=== PATIENT | female | born 1980 | race Caucasian/White ===

== ENCOUNTER 2020-01-11 18:07 | Emergency (ER) | payer MEDICAID, OTHER ==
[2020-01-11] MEDS ORDERED: IBUPROFEN 800 MG TABLET PO ONE (18:14)
--- NOTE | 2020-01-11 18:17 | ER Document Report ---
ED Medical Screen (RME) - General Chief Complaint: Pelvic Pain Stated Complaint: ABDOMINAL PAIN/LOWER BACK PAIN Time Seen by Provider: 01/11/20 18:10 Primary Care Provider: AGUEDA LEZAMA [Primary Care Provider] - Follow up as needed Mode of Arrival: Ambulatory Information source: Patient Notes: 39-year-old female presents emergency department with complaints of lower a bdominal pain, vaginal pain, low back pain. Reports symptoms started 2 days ago when she started her menses. She reports she usually has menstrual cramps with this is extreme. She reports for the last 6 months of 2018 she did not have menses. She started bleeding again in October. She reports the bleeding is very heavy. Each month her menses is heavy. She reports at times she has to wear a tampon and a pad. She reports today she is having so much pain in her vaginal area she is unable to insert a tampon. She denies fever vomiting diarrhea. She took Tylenol last night without relief of symptoms. I have greeted and performed a rapid initial assessment of this patient. A comprehensive ED assessment and evaluation of the patient, analysis of test results and completion of the medical decision making process will be conducted by additional ED providers. - Related Data Allergies/Adverse Reactions: morphine Allergy (Verified 01/11/20 18:14) Past Medical History - Social History Chew tobacco use (# tins/day): No Frequency of alcohol use: None Drug Abuse: None Physical Exam - Vital signs Vitals: Temp Pulse Resp BP Pulse Ox 98.0 F 84 18 156/99 H 98 01/11/20 18:11 01/11/20 18:11 01/11/20 18:11 01/11/20 18:11 01/11/20 18:11 Course - Vital Signs Vital signs: Temp Pulse Resp BP Pulse Ox 98.0 F 84 18 156/99 H 98 01/11/20 18:11 01/11/20 18:11 01/11/20 18:11 01/11/20 18:11 01/11/20 18:11 Doctor's Discharge - Discharge Referrals: AGUEDA LEZAMA [Primary Care Provider] - Follow up as needed
[2020-01-11 18:42] LABS: ABSOLUTE BASOPHILS # (AUTO) 0.1 10^3/uL (0.0-0.2); ABSOLUTE EOSINOPHILS # (AUTO) 0.2 10^3/uL (0.0-0.6); ABSOLUTE LYMPHOCYTES (AUTO) 1.9 10^3/uL (0.5-4.7); ABSOLUTE MONOCYTES (AUTO) 0.6 10^3/uL (0.1-1.4); BASOPHILS % (AUTO) 0.6 % (0-2); EOSINOPHILS % (AUTO) 1.9 % (0-6); HEMATOCRIT 39.4 % (36.0-47.0); HEMOGLOBIN 13.8 g/dL (12.0-15.5); MEAN CORPUSCULAR HEMOGLOBIN 31.6 pg (27.0-33.4); MEAN CORPUSCULAR VOLUME 90 fl (80-97); MONOCYTES % (AUTO) 6.9 % (3-13); PLATELET COUNT 366 10^3/uL (150-450); RED BLOOD COUNT 4.36 10^6/uL (3.72-5.28); RED CELL DISTRIBUTION WIDTH 13.4 % (11.5-14.0); SEGMENTED NEUTROPHILS % (AUTO) 68.6 % (42-78); TOTAL CELLS COUNTED % (AUTO) 100 %; WHITE BLOOD COUNT 8.8 10^3/uL (4.0-10.5)
[2020-01-11 18:50] LABS: APPEARANCE,URINE CLEAR; BILIRUBIN,URINE NEGATIVE (NEGATIVE); COLOR,URINE YELLOW; GLUCOSE, URINE NEGATIVE (NEGATIVE); KETONES,URINE NEGATIVE (NEGATIVE); LEUKOCYTE ESTERASE,URINE TRACE (NEGATIVE); NITRITE,URINE NEGATIVE (NEGATIVE); PROTEIN,URINE NEGATIVE (NEGATIVE); URINE SPECIFIC GRAVITY 1.014; UROBILINOGEN,URINE NEGATIVE mg/dL (<2.0)
[2020-01-11 19:00] LABS: ALBUMIN 4.2 g/dL (3.5-5.0); ALKALINE PHOSPHATASE 52 U/L (38-126); ASPARTATE AMINO TRANSFERASE 17 U/L (14-36); BILIRUBIN,DIRECT 0.1 mg/dL (0.0-0.4); BILIRUBIN,TOTAL 0.5 mg/dL (0.2-1.3); BLOOD UREA NITROGEN 14 mg/dL (7-20); CALCIUM 9.1 mg/dL (8.4-10.2); CHLORIDE 103 mmol/L (98-107); GLUCOSE 93 mg/dL (75-110); POTASSIUM 4.3 mmol/L (3.6-5.0); TOTAL PROTEIN 7.6 g/dL (6.3-8.2)
[2020-01-11 19:05] LABS: CARBON DIOXIDE 31 mmol/L (22-30)
[2020-01-11 19:06] LABS: ANION GAP 5 (5-19)
--- NOTE | 2020-01-11 20:02 | ER Document Report ---
ED General - General Chief Complaint: Pelvic Pain Stated Complaint: ABDOMINAL PAIN/LOWER BACK PAIN Time Seen by Provider: 01/11/20 18:10 Primary Care Provider: AGUEDA LEZAMA [NO LOCAL MD] - Follow up as needed Mode of Arrival: Ambulatory - HPI Notes: Patient is a 39-year-old female who presents to the emergency department for evaluation. She states that over the last several months has had abnormal menstruation, heavy periods. She states that she at times needs to use a menst rual pad as well as a tampon simultaneously. She states today that her bleeding was heavier in her vagina "did not feel right." She really could not further explain it to me other than "it just does not feel like it normally does." She did have some pelvic pain. She has no history of endometriosis. She denies any vaginal discharge or any history of STDs. She is unsure as to when her last pel ana exam was, in fact states to me she is unsure as to whether or not she has ever had one. She denies any fevers or chills. No nausea or vomiting. Eating and drinking normally. Normal bowel movements. Normal urination. - Related Data Allergies/Adverse Reactions: morphine Allergy (Verified 01/11/20 18:14) Home Medications: Celexa, amitriptyline Past Medical History - General Information source: Patient - Social History Smoking Status: Current Every Day Smoker Chew tobacco use (# tins/day): No Frequency of alcohol use: None Drug Abuse: None Family History: Reviewed & Not Pertinent Patient has suicidal ideation: No Patient has homicidal ideation: No Psychiatric Medical History: Reports: Hx Depression Review of Systems - Review of Systems Female Genitourinary: See HPI -: Yes All other systems reviewed and negative Physical Exam - Vital signs Vitals: Temp Pulse Resp BP Pulse Ox 98.0 F 84 18 156/99 H 98 01/11/20 18:11 01/11/20 18:11 01/11/20 18:11 01/11/20 18:11 01/11/20 18:11 - Notes Notes: Vital signs reviewed, please refer to chart. Head is normocephalic, atraumatic. Pupils equal round, reactive to light. Neck is supple without meningismus. Heart is regular rate and rhythm. Lungs are clear to auscultation bilaterally. Abdomen is soft, nontender, normoactive bowel sounds throughout. Extremities without cyanosis, clubbing. Posterior calves are nontender. Peripheral pulses are equal. Skin is warm and dry. Pelvic exam was performed with FIDEL Lugo, present in the room. Patient had a moderate amount of bleeding. Normal external genitalia. Speculum was able to be passed without significant difficulty. No cervical motion tenderness, no visible lesions. Course - Re-evaluation Re-evalutation: 01/11/20 20:01 Patient presents emergency department for evaluation. She really cannot tell me that she has pelvic pain so much as "it feels different." I will perform a pelvic exam. At any rate, her laboratory investigations are entirely unremarkable. Patient is stable at this time, we will continue to monitor. 01/11/20 21:05 Patient is not anemic. Her pelvic exam was largely unremarkable. We will have her follow-up with DIRECTORY OPERATOR, she is to return to the ER with worsening. - Vital Signs Vital signs: Temp Pulse Resp BP Pulse Ox 98.0 F 69 16 138/94 H 100 01/11/20 18:11 01/11/20 21:21 01/11/20 21:21 01/11/20 21:21 01/11/20 21:21 - Laboratory Result Diagrams: 01/11/20 16:20 01/11/20 16:20 Laboratory results interpreted by me: 01/11/20 01/11/20 16:20 16:20 Carbon Dioxide 31 H Urine Blood LARGE H Ur Leukocyte Esterase TRACE H Discharge - Discharge Clinical Impression: Menometrorrhagia Condition: Stable Disposition: HOME, SELF-CARE Instructions: Vaginal Bleeding ([facility]) Additional Instructions: Your pelvic exam today failed to reveal any significant abnormalities. Your blood counts were normal. You should follow-up with DIRECTORY OPERATOR for further evaluation. Return to the emergency department with worsening or new concerning symptoms of any sort. Referrals: LOCALMD,NO [NO LOCAL MD] - Follow up as needed
[2020-01-11 21:33] VITALS: BP 138/94
== END 2020-01-11 21:20 | disposition home or self-care (01) ==
LOC: ER 18:07
DX: N92.1 Excessive and frequent menstruation with irregular cycle (principal); F17.200 Nicotine dependence, unspecified, uncomplicated; F32.9 Major depressive disorder, single episode, unspecified; Z79.899 Other long term (current) drug therapy; Z88.6 Allergy status to analgesic agent; Z88.5 Allergy status to narcotic agent
CPT/HCPCS: 36415; 80053; 81001; 84703; 85025; 86850; 86900; 86901; 99284

== ENCOUNTER 2020-02-24 16:42 | Emergency (ER) | payer OTHER ==
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
[2020-02-24] MEDS ORDERED: KETOROLAC TROMETHAMINE INJ/PF 30 MG/1 ML SDV IM ONE (19:12)
[2020-02-24 20:14] VITALS: BP 137/84
== END 2020-02-24 20:35 | disposition home or self-care (01) ==
LOC: ER 16:42
DX: S13.4XXA Sprain of ligaments of cervical spine, initial encounter (principal); G44.89 Other headache syndrome; M54.5 Low back pain; V89.2XXA Person injured in unspecified motor-vehicle accident, traffic, initial encounter; Z88.6 Allergy status to analgesic agent; Z90.49 Acquired absence of other specified parts of digestive tract
CPT/HCPCS: 99283; 96372; J1885

== ENCOUNTER 2020-06-18 14:40 | Emergency (ER) | payer OTHER ==
[2020-06-18] MEDS ORDERED: ACETAMINOPHEN 325 MG TABLET PO ONE (15:10)
[2020-06-18] MEDS ORDERED: ONDANSETRON 4 MG TAB.RAPDIS PO ONE (15:10)
--- NOTE | 2020-06-18 15:13 | ER Document Report ---
ED Medical Screen (RME) - General Chief Complaint: Fever Stated Complaint: FEVER/MIGRAINE/VOMITING Time Seen by Provider: 06/18/20 15:09 Primary Care Provider: TABITHA OTT MD [Primary Care Provider] - Follow up as needed Mode of Arrival: Ambulatory Information source: Patient Notes: 40-year-old female presents to ED for headache nausea vomiting diarrhea and fever for the last several days. She is alert oriented respirations regular nonlabored speaking in full sentences. She states her temperature at home was 100.4 at this time that is 98.6 I did get a blood pressure 131/83 O2 sat of 100% respirations of 18 and a pulse of 74. She is alert oriented respirations regular nonlabored speaking in full sentences. She is not ending at the time of her exam. She is not coughing at the time of her exam that her lungs were clear. This patient was seen during the coronavirus pandemic. - Related Data Allergies/Adverse Reactions: morphine Allergy (Intermediate, Verified 02/24/20 19:03) GI upset Past Medical History Neurological Medical History: Reports: Hx Migraine Renal/ Medical History: Reports: Hx Kidney Stones Psychiatric Medical History: Reports: Hx Depression Past Surgical History: Reports: Hx Cholecystectomy, Hx Kidney (Renal Surgery) - Lithotripsy, Hx Tubal Ligation Doctor's Discharge - Discharge Referrals: TABITHA OTT MD [Primary Care Provider] - Follow up as needed
[2020-06-18] MEDS: NORMAL SALINE 1000 ML 1,000 ML IV PRN ×2 (15:30→16:14)
[2020-06-18 15:36] LABS: ABSOLUTE BASOPHILS # (AUTO) 0.1 10^3/uL (0.0-0.2); ABSOLUTE EOSINOPHILS # (AUTO) 0.3 10^3/uL (0.0-0.6); ABSOLUTE LYMPHOCYTES (AUTO) 1.4 10^3/uL (0.5-4.7); ABSOLUTE MONOCYTES (AUTO) 0.5 10^3/uL (0.1-1.4); ABSOLUTE NEUT (AUTO) 7.4 10^3/uL (1.7-8.2); BASOPHILS % (AUTO) 0.6 % (0-2); EOSINOPHILS % (AUTO) 2.9 % (0-6); HEMATOCRIT 42.1 % (36.0-47.0); HEMOGLOBIN 14.7 g/dL (12.0-15.5); LYMPHOCYTES % (AUTO) 14.8 % (13-45); MEAN CORPUSCULAR HEMOGLOBIN 30.7 pg (27.0-33.4); MEAN CORPUSCULAR HGB CONC 34.9 g/dL (32.0-36.0); MEAN CORPUSCULAR VOLUME 88 fl (80-97); PLATELET COUNT 432 10^3/uL (150-450); RED BLOOD COUNT 4.78 10^6/uL (3.72-5.28); RED CELL DISTRIBUTION WIDTH 13.3 % (11.5-14.0); SEGMENTED NEUTROPHILS % (AUTO) 76.7 % (42-78); TOTAL CELLS COUNTED % (AUTO) 100 %; WHITE BLOOD COUNT 9.7 10^3/uL (4.0-10.5)
[2020-06-18] MEDS ORDERED: KETOROLAC TROMETHAMINE INJ/PF 30 MG/1 ML SDV IV ONE (15:50)
[2020-06-18] MEDS ORDERED: DIPHENHYDRAMINE HCL 50 MG/ML VIAL IV ONE (15:50)
--- NOTE | 2020-06-18 15:51 | ER Document Report ---
ED Fever - General Chief Complaint: Migraine Stated Complaint: FEVER/MIGRAINE/VOMITING Time Seen by Provider: 06/18/20 15:09 Primary Care Provider: TABITHA OTT MD [NO LOCAL MD] - Follow up as needed Mode of Arrival: Ambulatory Notes: Patient is a 40-year-old female with a history of migraines who presents the emergency department with a headache, nausea, vomiting, diarrhea, and generally not feeling well. Patient states that her symptoms yesterday. Patient had a low-grade temperature of 100.6 at home. Patient states that her headache is over her entire head. 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 Denies any cough or shortness of breath. - Related Data Allergies/Adverse Reactions: morphine Allergy (Intermediate, Verified 02/24/20 19:03) GI upset Past Medical History - General Information source: Patient - Social History Smoking Status: Former Smoker Family History: Reviewed & Not Pertinent Neurological Medical History: Reports: Hx Migraine Renal/ Medical History: Reports: Hx Kidney Stones Psychiatric Medical History: Reports: Hx Depression Past Surgical History: Reports: Hx Cholecystectomy, Hx Kidney (Renal Surgery) - Lithotripsy, Hx Tubal Ligation Review of Systems - Review of Systems Notes: REVIEW OF SYSTEMS: CONSTITUTIONAL : Denies recent illness. Denies recent unintentional weight loss. Denies fever, chills, or sweats. EENT: Denies eye, ear, throat, or mouth pain, discharge, or symptoms. Denies nasal or sinus congestion. CARDIOVASCULAR: Denies chest pain. RESPIRATORY: Denies shortness of breath, cough, congestion, difficulty breathing, or wheezing. GASTROINTESTINAL: See HPI. GENITOURINARY: Denies difficulty urinating, burning, blood in urine, urgency or frequency. MUSCULOSKELETAL: Denies neck and back pain. Denies joint pain or swelling. SKIN: Denies rash, itchiness, or lesions HEMATOLOGIC : Denies easy bruising or bleeding. LYMPHATIC: Denies swollen, painful, enlarged glands. NEUROLOGICAL: See HPI. PSYCHIATRIC: Denies stress, anxiety, alteration in sleep patterns, or depression. All other systems reviewed and negative. Physical Exam - Vital signs Vitals: Temp Pulse Resp BP Pulse Ox 98.1 F 77 18 135/89 H 100 06/18/20 15:25 06/18/20 15:25 06/18/20 15:25 06/18/20 15:25 06/18/20 15:25 - Notes Notes: PHYSICAL EXAMINATION: GENERAL: Appears well, healthy, well-nourished, no acute distress. HEAD: Normocephalic, atraumatic. EYES: PERRL, conjunctiva normal, all extraocular movements intact, sclera n onicteric ENT: Moist mucous membranes. NECK: Supple, no noticeable swelling, redness, rash. Normal range of motion. LUNGS: Equal breath sounds bilaterally and clear to auscultation. No wheezes rales or rhonchi. CARDIOVASCULAR: S1-S2, regular rate, regular rhythm. Radial pulses 2+, normal. ABDOMEN: Normoactive bowel sounds. Soft, nontender, no guarding, no rebound tenderness, and no masses palpated. EXTREMITIES: Normal strength and range of motion, no pitting or edema. No cyanosis. NEUROLOGICAL: Moves all extremities upon command. Strength 5/5 in all extremities. PSYCH: Normal mood, normal affect. SKIN: Warm, dry. No rash, lesions, ulcerations noted. Normal skin turgor. Course - Re-evaluation Re-evalutation: 06/18/20 16:57 I was told by the primary nurses that the patient still had a headache. It had only been 20 minutes after receiving her medications. Nurses reported that the patient was on her phone talking. I explained to the patient that it was important for her to rest and get off the phone. 06/18/20 18:00 The patient was able to rest a little bit and she states that her headache is be tter. The patient was evaluated during the global COVID-19 pandemic and that diagnosis was suspected/considered upon their initial presentation. Their evaluation, treatment and testing was consistent with current guidelines for patients who present with complaints or symptoms that may be related to COVID- 19. Hematology is unremarkable. No anemia or leukocytosis noted. Sodium was slightly low, but patient received IV fluids. Lipase in her ordered in triage was unremarkable. hCG was negative. Patient has a small amount of blood in her urine, but this is due to her being at the end of her menstrual cycle. I have a low suspicion for an intracranial bleed or any life-threatening etiology at this time. No neurological deficits noted. Follow-up precautions were given. Verbal discharge instructions were given to the patient. They verbalized understanding. They are stable for discharge. - Vital Signs Vital signs: Temp Pulse Resp BP Pulse Ox 97.7 F 88 18 135/92 H 100 06/18/20 18:59 06/18/20 18:59 06/18/20 18:59 06/18/20 18:59 06/18/20 18:59 - Laboratory Result Diagrams: 06/18/20 15:27 06/18/20 15:27 Laboratory results interpreted by me: 06/18/20 06/18/20 15:27 16:19 Sodium 136.1 L Urine Blood SMALL H Ur Leukocyte Esterase TRACE H Discharge - Discharge Clinical Impression: Nausea Headache Qualifiers: Headache type: unspecified Headache chronicity pattern: unspecified pattern Intractability: not intractable Qualified Code(s): R51 - Headache Condition: Stable Disposition: HOME, SELF-CARE Instructions: COVID-19 Guidance for Persons Under Investigation, Intravenous (IV) Fluids ([facility]), Reglan ([facility]) Additional Instructions: You were seen today in the emergency department for a headache, nausea, and vomiting. Your labs and work-up was reassuring. Thus far, we are waiting on a COVID test, which the health department will call you with the results. This may be in the next 3 to 4 days. If your test is positive, please quarantine for at least 2 weeks. You can take Tylenol 1000 mg every 6 hours as needed for pain. If you develop a headache, make sure you get rest. You can take 50 mg of Benadryl to help you rest. Prescriptions: Ondansetron [Zofran Odt 4 mg Tablet] 1 - 2 tab PO Q4HP PRN #30 tab.rapdis PRN Reason: Referrals: TABITHA OTT MD [NO LOCAL MD] - Follow up as needed
[2020-06-18 16:02] LABS: ALBUMIN 4.4 g/dL (3.5-5.0); ALKALINE PHOSPHATASE 66 U/L (38-126); ANION GAP 6 (5-19); ASPARTATE AMINO TRANSFERASE 23 U/L (14-36); BILIRUBIN,DIRECT 0.3 mg/dL (0.0-0.4); BILIRUBIN,TOTAL 0.9 mg/dL (0.2-1.3); BLOOD UREA NITROGEN 14 mg/dL (7-20); CALCIUM 9.4 mg/dL (8.4-10.2); CARBON DIOXIDE 28 mmol/L (22-30); CHLORIDE 102 mmol/L (98-107); GLUCOSE 97 mg/dL (75-110); POTASSIUM 4.7 mmol/L (3.6-5.0); TOTAL PROTEIN 7.4 g/dL (6.3-8.2)
[2020-06-18 17:15] LABS: APPEARANCE,URINE SLIGHTLY-CLOUDY; BILIRUBIN,URINE NEGATIVE (NEGATIVE); COLOR,URINE STRAW; GLUCOSE, URINE NEGATIVE (NEGATIVE); KETONES,URINE NEGATIVE (NEGATIVE); LEUKOCYTE ESTERASE,URINE TRACE (NEGATIVE); NITRITE,URINE NEGATIVE (NEGATIVE); PROTEIN,URINE NEGATIVE (NEGATIVE); URINE SPECIFIC GRAVITY 1.009; UROBILINOGEN,URINE NEGATIVE mg/dL (<2.0)
[2020-06-18 19:01] VITALS: BP 135/92
== END 2020-06-18 18:59 | disposition home or self-care (01) ==
LOC: ER 14:40
DX: R51 Headache (principal); R11.2 Nausea with vomiting, unspecified; R50.9 Fever, unspecified; Z20.828 Contact with and (suspected) exposure to other viral communicable diseases; Z88.6 Allergy status to analgesic agent; Z90.49 Acquired absence of other specified parts of digestive tract
CPT/HCPCS: 99284; 96361; 96374; 96375; 36415; 87070; 87086; 87880; 83690; 84703; 85025; 87077; 87088; 80053; 81001; U0003; J1200; S0119; J1885; J7030; C9803; 87635